=== PATIENT | female | born 1995 | race Hispanic/Latino ===

== ENCOUNTER 2020-03-02 14:17 | Emergency (ER) | payer OTHER, SELFPAY ==
--- OUTSIDE RECORDS SUMMARY | 2020-03-02 14:20 | XMS REPORT | Continuity of Care Document ---
:1995 Author Organization [facility] t Address [address] [place] [address] Care Team Providers Name Role Phone Pcp, Does Not Have A Attending Clinician Wil Real MD Attending Clinician 1, Lab Attending Clinician Unavailable Doctor Unassigned, Name Attending Clinician Unavailable Problems This patient has no known problems. Allergies, Adverse Reactions, Alerts This patient has no known allergies or adverse reactions. Medications This patient has no known medications. Procedures This patient has no known procedures. Encounters Start End Encounter Admission Attending Care Care Encounter Source Date/Time Date/Time Type Type Clinicians Facility Department ID 2019-11-04 2019-11-04 Telephone Pcp, [facility] [id number] 00:00:00 00:00:00 Patient JANITOR AND CLEANER [id number] Does [facility] [id number] Have A MATERNAL [id number] & CHILD [address] [place] [address] 2019-10-29 2019-10-29 Telephone Diane Real AZJONY [id number] 00:00:00 00:00:00 Wil Barron [id number] [place] [id number] Professio [id number] [address] 2019-03-01 2019-03-01 Getter Welder 1, Adc Lab [facility] [id number] 12:36:07 12:51:07 Visit Beatrice [id number] [place] [id number] [place] [id number] 2019-03-01 2019-03-01 Orders Doctor MICHAEL [id number] 00:00:00 00:00:00 Only Unassigned, MONICA [id number] [place] [facility] [id number] 2019-02-20 2019-02-20 Routine Diane Real [facility] [id number] 14:49:44 15:52:21 Cam Beatrice [id number] Visit [place] [id number] [facility] [phone] formerly [facility] [address] [facility] Results This patient has no known results.
[2020-03-02 16:19] LABS: Absolute Lymphocytes (CBC) 1.3 K/uL (0.7-4.9); Basophils % 0.5 % (0-1.3); Hematocrit 33.6 % (36.0-45.0); Lymphocytes % 16.1 % (15.3-44.8); MPV 7.9 fL (7.6-11.3); RBC Red Blood Cell Count 4.63 M/uL (3.86-4.86)
[2020-03-02 16:34] LABS: Urine Bacteria 20-50 /HPF (<20); Urine Culture Reflex Order REFLEXED; Urine RBC <5 /HPF (NONE SEEN)
[2020-03-02 16:48] LABS: Urine Blood NEGATIVE (NEG); Urine Glucose NEGATIVE (NEG); Urine Protein NEGATIVE (NEG)
[2020-03-02 16:56] LABS: BUN Blood Urea Nitrogen 8 mg/dL (7-18); Bicarbonate 26 mmol/L (21-32); Glucose Level 102 mg/dL (74-106); HCG, Quantitative 3931 mIU/mL (1-3); Potassium 3.7 mmol/L (3.5-5.1); Sodium Level 138 mmol/L (136-145)
--- NOTE | 2020-03-02 17:42 | RAD REPORT ---
EXAM DESCRIPTION: US - 1St Trimest Single 1St Fetus - 03/02/2020 5:26 pm CLINICAL HISTORY: with pelvic pain COMPARISON: None. FINDINGS: The uterus measures 10 x 5 x 6 centimeters. A sac is present within the endometrium measu ring 6 millimeters. A yolk sac is not seen. A pole is not demonstrated Ovaries are normal in size and echotexture.. An adnexal mass is not noted. No significant free fluid IMPRESSION: 6 millimeter sac within the endometrium may represent a normal early IUP. Estimated gest ational age would be 5 weeks 2 days SID 10/31/2020. Incomplete and a pseudo gestational sac associated with an ectopic can have a similar appearance. . .This all should be correlated clinically and with serial beta HCG levels. Followup endovaginal sonog nimesh in 1 week recommended
--- NOTE | 2020-03-02 17:54 | ER ---
Nurse's Notes [facility] Name: Radha Diaz Age: 24 yrs Sex: Female : 1995 Arrival Date: 03/02/2020 Time: 14:21 Bed 5 Private MD: Diagnosis: Urinary tract infection, site not specified Presentation: 03/02 14:42 Chief complaint: Patient states: Lower abdominal pain since yesterday. slight nausea. ll1 No fever or dysuria. Texting on cell phone throughout entire triage. Coronavirus screen: Client denies travel out of the [place] in the last 14 days. At this time, the client does not indicate any symptoms associated with coronavirus-19. Ebola Screen: Patient denies travel to an Ebola-affected area in the 21 days before illness onset. Initial Sepsis Screen: Does the patient meet any 2 criteria? HR > 90 bpm. Onset of symptoms was March 01, 2020. 14:42 Method Of Arrival: Ambulatory ll1 14:42 Acuity: CHUCKIE 3 ll1 15:45 Initial Sepsis Screen: Does the patient have a suspected source of infection? No. em Patient's initial sepsis screen is negative. Risk Assessment: Do you want to hurt yourself or someone else? Patient reports no desire to harm self or others. Historical: - Allergies: 14:44 No Known Allergies; ll1 - PMHx: 14:44 None; ll1 - PSHx: 14:44 None; ll1 - Immunization history:: Flu vaccine is up to date. - Social history:: Smoking status: Patient denies any tobacco usage or history of. Patient/guardian denies using alcohol, street drugs. Screenin:48 Abuse screen: Denies threats or abuse. Nutritional screening: No deficits noted. em Tuberculosis screening: No symptoms or risk factors identified. Fall Risk None identified. Assessment: 15:45 General: Appears in no apparent distress. comfortable, Denies fever. Pain: Complains of em pain in suprapubic area Pain currently is 6 out of 10 on a pain scale. Neuro: Level of Consciousness is awake, alert, obeys commands, Oriented to person, place, time, situation, Appropriate for age. Cardiovascular: Capillary refill < 3 seconds Patient's skin is warm and dry. Respiratory: Airway is patent Respiratory effort is even, unlabored, Respiratory pattern is regular, symmetrical. GI: Abdomen is flat, Bowel sounds present X 4 quads. Abd is soft and non tender X 4 quads. Patient currently denies nausea, vomiting. Derm: Skin is intact, is healthy with good turgor, Skin is pink, warm \T\ dry. Musculoskeletal: Capillary refill < 3 seconds, Range of motion: intact in all extremities. 17:58 Reassessment: Patient appears in no apparent distress at this time. Patient and/or em family updated on plan of care and expected duration. Pain level reassessed. Patient is alert, oriented x 3, equal unlabored respirations, skin warm/dry/pink. Vital Signs: 14:42 BP 121 / 78; Pulse 106; Resp 17; Temp 99.3; Pulse Ox 100% ; Pain 6/10; ll1 17:58 BP 128 / 67; Pulse 88; Resp 18; Pulse Ox 99% on R/A; em ED Course: 14:21 Patient arrived in ED. ds1 14:44 Triage completed. ll1 14:45 Arm band placed on. ll1 15:23 Tate Moise PA is PHCP. [facility] 15:23 Anselmo Cantu MD is Attending Physician. [facility] 15:26 Spencer Cat, MIKAELA is Primary Nurse. em 15:48 Patient has correct armband on for positive identification. Fall risk band placed. em Placed in gown. Pulse ox on. NIBP on. 15:48 Urine collected: clean catch specimen, cloudy. em 16:06 Initial lab(s) drawn, by me, sent to lab. Inserted saline lock: 20 gauge in right ph antecubital area, using aseptic technique. Blood collected. 17:26 1st Trimest Single 1st Fetus In Process Unspecified. EDMS 17:59 No provider procedures requiring assistance completed. IV discontinued, intact, em bleeding controlled, No redness/swelling at site. Pressure dressing applied. Administered Medications: No medications were administered Outcome: 17:54 Discharge ordered by . [facility] 18:06 Discharged to home ambulatory. em 18:06 Condition: stable 18:06 Discharge instructions given to patient, Instructed on discharge instructions, follow up and referral plans. medication usage, Demonstrated understanding of instructions, follow-up care, medications, Prescriptions given X 1. 18:12 Patient left the ED. em Signatures: Dispatcher [employer] EDMS Tate Moise PA PA jmm Munoz, Edgar, RN RN Jackelyn Adams ds1 Sammi Jewell RN RN Campos Reich RN RN ll1 Corrections: (The following items were deleted from the chart) 14:45 14:42 Chief complaint: Patient states: Lower abdominal pain since yesterday. slight ll1 nausea. No fever or dysuria. ll1 14:45 14:44 Arm band placed on Patient placed in an exam room, on a stretcher, ll1 ll1
--- NOTE | 2020-03-02 17:54 | EDPHYS ---
Physician Documentation [facility] Name: Radha Diaz Age: 24 yrs Sex: Female : 1995 Arrival Date: 03/02/2020 Time: 14:21 Bed 5 Private MD: ED Physician Anselmo Cantu HPI: 03/02 15:27 This 24 yrs old Female presents to ER via Ambulatory with complaints of jmm Abdominal Pain. 15:27 The patient presents with abdominal pain. Onset: The symptoms/episode began/occurred 1 jmm day(s) ago. The symptoms radiate to Associated signs and symptoms: Pertinent negatives: fever, vomiting. Modifying factors: The symptoms are alleviated by nothing, the symptoms are aggravated by pressure. This is a 24 year old female with no chronic medical conditions that presents to the ED with complaints of pelvic pain beginning approx 1 day ago. Denies fever, vomiting, diarrhea. Patient radiates to the back. Patient denies vaginal bleeding, abnormal discharge. . Historical: - Allergies: 14:44 No Known Allergies; ll1 - PMHx: 14:44 None; ll1 - PSHx: 14:44 None; ll1 - Immunization history:: Flu vaccine is up to date. - Social history:: Smoking status: Patient denies any tobacco usage or history of. Patient/guardian denies using alcohol, street drugs. ROS: 15:27 Constitutional: Negative for fever, chills, and weight loss, Respiratory: Negative for jmm shortness of breath, cough, wheezing, and pleuritic chest pain. 15:27 Abdomen/GI: Positive for nausea. 15:27 Back: Positive for radiated pain. 15:27 : Positive for pelvic pain. 15:27 All other systems are negative. Exam: 15:27 Constitutional: This is a well developed, well nourished patient who is awake, alert, jmm and in no acute distress. Head/Face: atraumatic. Eyes: EOMI, no conjunctival erythema appreciated ENT: Moist Mucus Membranes Neck: Trachea midline, Supple Chest/axilla: Normal chest wall appearance and motion. Cardiovascular: Regular rate and rhythm. No edema appreciated Respiratory: Normal respirations, no respiratory distress appreciated Abdomen/GI: Non distended, soft Back: Normal ROM Skin: General appearance color normal MS/ Extremity: Moves all extremities, no obvious deformities appreciated, no edema noted to the lower extremities Neuro: Awake and alert, normal gait Psych: Behavior is normal, Mood is normal, Patient is cooperative and pleasant 15:34 Abdomen/GI: Inspection: abdomen appears normal, Bowel sounds: normal, Palpation: soft, [facility] mild abdominal tenderness, in the suprapubic area. Vital Signs: 14:42 BP 121 / 78; Pulse 106; Resp 17; Temp 99.3; Pulse Ox 100% ; Pain 6/10; ll1 17:58 BP 128 / 67; Pulse 88; Resp 18; Pulse Ox 99% on R/A; em MDM: 15:25 Patient medically screened. [facility] 17:52 Data reviewed: vital signs, nurses notes. Counseling: I had a detailed discussion with ritu the patient and/or guardian regarding: the historical points, exam findings, and any diagnostic results supporting the discharge/admit diagnosis, lab results, radiology results, the need for outpatient follow up, to return to the emergency department if symptoms worsen or persist or if there are any questions or concerns that arise at home. ED course: No mcburney pt tenderness. Pain appears all pelvic. Patient is advised to follow up with [facility] for further evaluation. patient is otherwise given strict return precautions. Patient understood and agrees with the plan of care. . 03/02 15:47 Order name: Urine Microscopic Only; Complete Time: 17:17 em 03/02 15:48 Order name: Urine Dipstick--Ancillary (enter results); Complete Time: 17:17 03/02 15:48 Order name: Urine --Ancillary (enter results); Complete Time: 17:17 03/02 15:50 Order name: Quantitative Hcg; Complete Time: 17:17 [facility] 03/02 15:50 Order name: Abo/rh Typing; Complete Time: 17:17 [facility] 03/02 15:50 Order name: Basic Metabolic Panel; Complete Time: 17:17 [facility] 03/02 15:26 Order name: Urine Dipstick-Ancillary (obtain specimen); Complete Time: 15:47 [facility] 03/02 15:26 Order name: Urine Test (obtain specimen); Complete Time: 15:47 [facility] 03/02 15:50 Order name: CBC with Diff; Complete Time: 17:17 [facility] 03/02 15:50 Order name: IV Saline Lock; Complete Time: 16:47 [facility] 03/02 15:50 Order name: Labs collected and sent; Complete Time: 16:47 [facility] 03/02 15:50 Order name: NPO; Complete Time: 16:47 [facility] 03/02 16:19 Order name: 1st Trimest Single 1st Fetus; Complete Time: 17:48 [facility] 03/02 16:35 Order name: Urine Culture EDUT Administered Medications: No medications were administered Disposition: 03/02/20 17:54 Discharged to Home. Impression: Urinary tract infection, site not specified. - Condition is Stable. - Discharge Instructions: and Urinary Tract Infection. - Prescriptions for Cephalexin 500 mg Oral Capsule - take 1 capsule by ORAL route every 12 hours for 10 days; 20 capsule. - Medication Reconciliation Form, Thank You Letter, Antibiotic Education, Prescription Opioid Use form. - Follow up: Private Physician; When: 2 - 3 days; Reason: Recheck today's complaints, Continuance of care, Re-evaluation by your physician. Addendum: 03/03/2020 19:50 Co-signature as Attending Physician, Anselmo Cantu MD I agree with the assessment and k dr plan of care. Signatures: Dispatcher [employer] EDUT Anselmo Cantu MD MD [facility] Tate Moise PA PA [facility] Spencer Cat, RN RN em Campos Paul RN RN ll1 Corrections: (The following items were deleted from the chart) 03/02 18:12 17:54 03/02/2020 17:54 Discharged to Home. Impression: Urinary tract infection, site em not specified. Condition is Stable. Forms are Medication Reconciliation Form, Thank You Letter, Antibiotic Education, Prescription Opioid Use. Follow up: Private Physician; When: 2 - 3 days; Reason: Recheck today's complaints, Continuance of care, Re-evaluation by your physician. [facility]
== END 2020-03-02 18:12 | disposition home or self-care (01) ==
LOC: ER 14:17
DX: N39.0 Urinary tract infection, site not specified (principal)
CPT/HCPCS: 36415; 76801; 80048; 81003; 81015; 81025; 84702; 85025; 86900; 86901; 87086; 87088; 99284

== ENCOUNTER 2021-11-02 14:28 | Emergency (ER) | payer OTHER ==
--- OUTSIDE RECORDS SUMMARY | 2021-11-02 14:32 | XMS REPORT | Continuity of Care Document ---
:1995 Author Organization [facility] t Address [address] [place] [address] Care Team Providers Name Role Phone ANENE Primary Care Physician Unavailable Richie DAHL Attending Clinician Unavailable LAVONNE Attending Clinician Unavailable LAVONNE Attending Clinician Unavailable Ricardo AGACNEugenie Attending Clinician RICARDO Attending Clinician Unavailable Richie Dahl MD Attending Clinician Sejal PAYNE Attending Clinician Pcp, Does Not Have A Attending Clinician Wil Real MD Attending Clinician 1, Lab Attending Clinician Unavailable Doctor Unassigned, Name Attending Clinician Unavailable Richie DAHL Admitting Clinician Unavailable Payers Payer Name Policy Type Policy Number Effective Date Expiration Date [facility] [id number] 2020 CHOICE MEDICAID 00:00:00 Problems Condition Condition Condition Status Onset Resolution Last Treating Co mments Source Name Details Category Date Date Treatment Clinician Date Excess Excess Disease Active Overview: Univer s skin of skin of 3-25 Formattin ity o f abdomen abdomen 00:00: g of this 00 note Medical might be Branch different from the original. Added automatic ally from request for surgery [id number] Encounter Encounter Disease Active Uni vers for for 4-19 ity of elective elective 00:00: [place] induction induction 00 Medi alejandro of labor of labor Branch Pelvic Pelvic Disease Active 2021-0 Univers pain pain 2-22 [place] of affecting [place] in third in third Branch trimester, trimester, antepartum antepartum Red blood Red blood Disease Active 2019-07 Uni vers cell cell 0-08 ity of antibody antibody 00:00: [place] positive positive 00 Medica l Branch GBS (group GBS (group Disease Active Overview : Univers B B 9-15 Formattin ity of streptococ streptococ 00:00: g of this [place] cus) UTI cus) UTI 00 note Medica l complicati complicati might be Branch ng ng different from the original. Pending GAURANG Over Over Disease Active Univers weight weight 9-11 ity of 00:00: [place] 00 Medical Branch Vaginal Vaginal Disease Active Univers yeast yeast 9-11 ity of infection infection 00:00: [place] [facility] Short Short Disease Active Univers interval interval 9-11 ity of between between 00:00: [place] pregnancie pregnancie 00 Me dical s s Branch affecting affecting , , antepartum antepartum [place] Disease Active Univers multiparit multiparit 9-11 it y of y, y, 00:00: [place] antepartum antepartum 00 Me dical Branch History of History of Disease Active 2018-07 Overview : Univers 2-06 Formattin ity o f delivery delivery 00:00: g of this Rohit as 00 note Medical might be Branch different from the original. 34,6 see chart review 2019 baby Disease Active Univers (spontaneo (spontaneo 9-21 it y of [place] vaginal [place] vaginal [place] delivery[place] 00 [facility] Branch Anemia of Anemia of Disease Active Uni vers mother in mother in 6-28 ity of , , [place] antepartum antepartum 00 Me dical Branch History of History of Disease Active U nivers miscarriag miscarriag 6-13 it y of e, e, 00:00: [place] currently currently 00 [facility] Branch Supervisio Supervisio Disease Active U nivers n of high n of high 6-13 ity of risk risk 00:00: [place] , , 00 Me dical antepartum antepartum Br anch Allergies, Adverse Reactions, Alerts Allergy Allergy Status Severity Reaction(s) Onset Inactive Treating Comm ents Source Name Type Date Date Clinician NO KNOWN Drug Active Univers ALLERGIE Class ity of S [facility] Social History Social Habit Start Date Stop Date Quantity Comments Source Exposure to 2021-09-05 2021-10-05 Yes [facility] SARS-CoV-2 (event) 00:00:00 15:45:00 Medica l Branch Alcohol intake 2021-10-01 2021-10-01 0 /d [facility] 00:00:00 00:00:00 Medical Branch Tobacco use and 2015-12-21 2015-12-21 Never used [facility] exposure 00:00:00 00:00:00 Medical Branch Sex [birth year] At [birth year] [facility] 00:00:00 00:00:00 Medical Branch Smoking Status Start Date Stop Date Source Never smoker [facility] Medications Ordered Filled Start Stop Current Ordering Indication Dosage Frequency Signature Comments Components Source Medication Medication Date Date Medication? Clinician (SIG) Name Name nystatin 2020-07 Yes [id number] Apply to Univers 100,000 2-07 area(s) 3 ity of unit/gram 00:00: (three) [place] powder 00 times Medical daily. Branch nystatin 2020-07 Yes [id number] Apply to Univers 100,000 2-07 area(s) 3 ity of unit/gram 00:00: (three) [place] powder 00 times Medical daily. Branch nystatin 2020-07 Yes [id number] Apply to Univers 100,000 2-07 area(s) 3 ity of unit/gram 00:00: (three) [place] powder 00 times Medical daily. Branch nystatin 2020-07 Yes [id number] Apply to Univers 100,000 2-07 area(s) 3 ity of unit/gram 00:00: (three) [place] powder 00 times Medical daily. Branch nystatin 2020-07 Yes [id number] Apply to Univers 100,000 2-07 area(s) 3 ity of unit/gram 00:00: (three) [place] powder 00 times Medical daily. Branch nystatin 2020-07 Yes [id number] Apply to Univers 100,000 2-07 area(s) 3 ity of unit/gram 00:00: (three) [place] powder 00 times Medical daily. Branch nystatin 2020-1 Yes [id number] Apply to Univers 100,000 2-07 area(s) 3 ity of unit/gram 00:00: (three) [place] powder 00 times Medical daily. Branch terbinafine 2020-0 Yes [id number] Apply to Univers HCL 1 % 9-28 area(s) 2 ity of cream 00:00: (two) [place] 00 times Medical daily. Branch terbinafine 2020-0 Yes [id number] Apply to Univers HCL 1 % 9-28 area(s) 2 ity of cream 00:00: (two) [place] 00 times Medical daily. Branch terbinafine 2020-0 Yes [id number] Apply to Univers HCL 1 % 9-28 area(s) 2 ity of cream 00:00: (two) [place] 00 times Medical daily. Branch terbinafine 2020-0 Yes [id number] Apply to Univers HCL 1 % 9-28 area(s) 2 ity of cream 00:00: (two) [place] 00 times Medical daily. Branch terbinafine 2020-0 Yes [id number] Apply to Univers HCL 1 % 9-28 area(s) 2 ity of cream 00:00: (two) [place] 00 times Medical daily. Branch terbinafine 2020-0 Yes [id number] Apply to Univers HCL 1 % 9-28 area(s) 2 ity of cream 00:00: (two) [place] 00 times Medical daily. Branch terbinafine 2020-0 Yes [id number] Apply to Univers HCL 1 % 9-28 area(s) 2 ity of cream 00:00: (two) [place] 00 times Medical daily. Branch ibuprofen 2020-0 Yes [id number] 600mg Take 1 Univers 600 mg 4-20 tablet by ity of tablet 00:00: mouth [place] 00 every 6 Medical (six) Branch hours as needed (Pain). Take with food or milk. ibuprofen 1-0 Yes [id number] 600mg Take 1 Univers 600 mg 4-20 tablet by ity of tablet 00:00: mouth [place] 00 every 6 Medical (six) Branch hours as needed (Pain). Take with food or milk. ibuprofen 1-0 Yes [id number] 600mg Take 1 Univers 600 mg 4-20 tablet by ity of tablet 00:00: mouth [place] 00 every 6 Medical (six) Branch hours as needed (Pain). Take with food or milk. ibuprofen 0 Yes [id number] 600mg Take 1 Univers 600 mg 4-20 tablet by ity of tablet 00:00: mouth [place] 00 every 6 Medical (six) Branch hours as needed (Pain). Take with food or milk. ibuprofen 0 Yes [id number] 600mg Take 1 Univers 600 mg 4-20 tablet by ity of tablet 00:00: mouth [place] 00 every 6 Medical (six) Branch hours as needed (Pain). Take with food or milk. ibuprofen 0 Yes [id number] 600mg Take 1 Univers 600 mg 4-20 tablet by ity of tablet 00:00: mouth [place] 00 every 6 Medical (six) Branch hours as needed (Pain). Take with food or milk. ibuprofen 0 Yes [id number] 600mg Take 1 Univers 600 mg 4-20 tablet by ity of tablet 00:00: mouth [place] 00 every 6 Medical (six) Branch hours as needed (Pain). Take with food or milk. ferrous Yes [id number] 325mg Take 1 Un quynh sulfate 3-02 tablet by ity of (IRON, 00:00: mouth 3 [place] FERROUS 00 (three) Medical SULFATE,) times Branch 325 mg (65 daily with mg iron) meals. tablet ferrous Yes [id number] 325mg Take 1 Un quynh sulfate 3-02 tablet by ity of (IRON, 00:00: mouth 3 [place] FERROUS 00 (three) Medical SULFATE,) times Branch 325 mg (65 daily with mg iron) meals. tablet ferrous Yes [id number] 325mg Take 1 Un quynh sulfate 3-02 tablet by ity of (IRON, 00:00: mouth 3 [place] FERROUS 00 (three) Medical SULFATE,) times Branch 325 mg (65 daily with mg iron) meals. tablet ferrous 0 Yes [id number] 325mg Take 1 Un quynh sulfate 3-02 tablet by ity of (IRON, 00:00: mouth 3 [place] FERROUS 00 (three) Medical SULFATE,) times Branch 325 mg (65 daily with mg iron) meals. tablet ferrous Yes [id number] 325mg Take 1 Un quynh sulfate 3-02 tablet by ity of (IRON, 00:00: mouth 3 [place] FERROUS 00 (three) Medical SULFATE,) times Branch 325 mg (65 daily with mg iron) meals. tablet ferrous Yes [id number] 325mg Take 1 Un quynh sulfate 3-02 tablet by ity of (IRON, 00:00: mouth 3 [place] FERROUS 00 (three) Medical SULFATE,) times Branch 325 mg (65 daily with mg iron) meals. tablet ferrous Yes [id number] 325mg Take 1 Un quynh sulfate 3-02 tablet by ity of (IRON, 00:00: mouth 3 [place] FERROUS 00 (three) Medical SULFATE,) times Branch 325 mg (65 daily with mg iron) meals. tablet ascorbic 2019-07 Yes [id number] 500mg Take 1 U nivers acid, 0-08 tablet by ity of vitamin C, 00:00: mouth [place] 500 mg 00 daily. Medical tablet Branch docusate 2019-07 Yes [id number] 100mg Take 1 U nivers (COLACE) 0-08 capsule by ity o f 100 mg 00:00: mouth once [place] capsule 00 daily as Medical needed for Branch Constipati on for up to 30 doses. ascorbic 2019-07 Yes [id number] 500mg Take 1 U nivers acid, 0-08 tablet by ity of vitamin C, 00:00: mouth [place] 500 mg 00 daily. Medical tablet Branch docusate 2019-07 Yes [id number] 100mg Take 1 U nivers (COLACE) 0-08 capsule by ity o f 100 mg 00:00: mouth once [place] capsule 00 daily as Medical needed for Branch Constipati on for up to 30 doses. ascorbic 2019-07 Yes [id number] 500mg Take 1 U nivers acid, 0-08 tablet by ity of vitamin C, 00:00: mouth [place] 500 mg 00 daily. Medical tablet Branch docusate 2019-07 Yes [id number] 100mg Take 1 U nivers (COLACE) 0-08 capsule by ity o f 100 mg 00:00: mouth once [place] capsule 00 daily as Medical needed for Branch Constipati on for up to 30 doses. ascorbic 2019-07 Yes [id number] 500mg Take 1 U nivers acid, 0-08 tablet by ity of vitamin C, 00:00: mouth [place] 500 mg 00 daily. Medical tablet Branch docusate 2019-07 Yes [id number] 100mg Take 1 U nivers (COLACE) 0-08 capsule by ity o f 100 mg 00:00: mouth once [place] capsule 00 daily as Medical needed for Branch Constipati on for up to 30 doses. ascorbic 2019-07 Yes [id number] 500mg Take 1 U nivers acid, 0-08 tablet by ity of vitamin C, 00:00: mouth [place] 500 mg 00 daily. Medical tablet Branch docusate 2019-07 Yes [id number] 100mg Take 1 U nivers (COLACE) 0-08 capsule by ity o f 100 mg 00:00: mouth once [place] capsule 00 daily as Medical needed for Branch Constipati on for up to 30 doses. ascorbic 2019-07 Yes [id number] 500mg Take 1 U nivers acid, 0-08 tablet by ity of vitamin C, 00:00: mouth [place] 500 mg 00 daily. Medical tablet Branch docusate 2019-07 Yes [id number] 100mg Take 1 U nivers (COLACE) 0-08 capsule by ity o f 100 mg 00:00: mouth once [place] capsule 00 daily as Medical needed for Branch Constipati on for up to 30 doses. ascorbic 2019-07 Yes [id number] 500mg Take 1 U nivers acid, 0-08 tablet by ity of vitamin C, 00:00: mouth [place] 500 mg 00 daily. Medical tablet Branch docusate 2019-07 Yes [id number] 100mg Take 1 U nivers (COLACE) 0-08 capsule by ity o f 100 mg 00:00: mouth once [place] capsule 00 daily as Medical needed for Branch Constipati on for up to 30 doses. Yes [id number] 1{tbl} Take 1 U nivers multivitami 9-11 tablet by ity of n ( 00:00: mouth [place] VITAMIN) 00 daily. Medical tablet Branch Yes [id number] 1{tbl} Take 1 U nivers multivitami 9-11 tablet by ity of n ( 00:00: mouth [place] VITAMIN) 00 daily. Medical tablet Branch Yes [id number] 1{tbl} Take 1 U nivers multivitami 9-11 tablet by ity of n ( 00:00: mouth [place] VITAMIN) 00 daily. Medical tablet Branch Yes [id number] 1{tbl} Take 1 U nivers multivitami 9-11 tablet by ity of n ( 00:00: mouth [place] VITAMIN) 00 daily. Medical tablet Branch 0 Yes [id number] 1{tbl} Take 1 U nivers multivitami 9-11 tablet by ity of n ( 00:00: mouth [place] VITAMIN) 00 daily. Medical tablet Branch 2020-0 Yes [id number] 1{tbl} Take 1 U nivers multivitami 9-11 tablet by ity of n ( 00:00: mouth [place] VITAMIN) 00 daily. Medical tablet Branch 2020-0 Yes [id number] 1{tbl} Take 1 U nivers multivitami 9-11 tablet by ity of n ( 00:00: mouth [place] VITAMIN) 00 daily. Medical tablet Branch Immunizations Ordered Filled Immunization Date Status Comments [facility] e Immunization Name Name TDAP 2020-08-06 Completed University of 00:00:00 [facility] TDAP 2020-08-06 Completed University of 00:00:00 [facility] TDAP 2020-08-06 Completed University of 00:00:00 [facility] TDAP 2020-08-06 Completed University of 00:00:00 [facility] TDAP 2020-08-06 Completed University of 00:00:00 [facility] TDAP 2020-08-06 Completed University of 00:00:00 [facility] TDAP 2020-08-06 Completed University of 00:00:00 [facility] Influenza Virus 2020-06-11 Completed Universit y of Vaccine Quad .5 mL 00:00:00 [facility] 6+ MO Branch Influenza Virus 2020-06-11 Completed Universit y of Vaccine Quad .5 mL 00:00:00 [facility] 6+ MO Branch Influenza Virus 2020-06-11 Completed Universit y of Vaccine Quad .5 mL 00:00:00 [place] [facility] 6+ MO Branch Influenza Virus 2020-06-11 Completed Universit y of Vaccine Quad .5 mL 00:00:00 [place] [facility] IM 6+ MO Branch Influenza Virus 2020-06-11 Completed Universit y of Vaccine Quad .5 mL 00:00:00 [place] [facility] IM 6+ MO Branch Influenza Virus 2020-06-11 Completed Universit y of Vaccine Quad .5 mL 00:00:00 [facility] 6+ MO Branch Influenza Virus 2020-06-11 Completed Universit y of Vaccine Quad .5 mL 00:00:00 [facility] 6+ MO Branch Varicella 2019-06-16 Completed University of (varivax)(chicken 00:00:00 [place] M edical pox) Branch Varicella 2019-06-16 Completed University of (varivax)(chicken 00:00:00 [place] M edical pox) Branch Varicella 2019-06-16 Completed University of (varivax)(chicken 00:00:00 [place] M edical pox) Branch Varicella 2019-06-16 Completed University of (varivax)(chicken 00:00:00 [place] M edical pox) Branch Varicella 2019-06-16 Completed University of (varivax)(chicken 00:00:00 [place] M edical pox) Branch Varicella 2019-06-16 Completed University of (varivax)(chicken 00:00:00 [place] M edical pox) Branch Varicella 2019-06-16 Completed University of (varivax)(chicken 00:00:00 [place] M edical pox) Branch TDAP (ADACEL) 2019-04-29 Completed University of VACCINE 00:00:00 [facility] Influenza Virus 2019-04-29 Completed Universit y of Vaccine Quad .5 mL 00:00:00 [facility] IM 6+ MO Branch TDAP (ADACEL) 2019-04-29 Completed University of VACCINE 00:00:00 [facility] Influenza Virus 2019-04-29 Completed Universit y of Vaccine Quad .5 mL 00:00:00 [facility] IM 6+ MO Branch TDAP (ADACEL) 2019-04-29 Completed University of VACCINE 00:00:00 [facility] Influenza Virus 2019-04-29 Completed Universit y of Vaccine Quad .5 mL 00:00:00 [facility] IM 6+ MO Branch TDAP (ADACEL) 2019-04-29 Completed University of VACCINE 00:00:00 [facility] Influenza Virus 2019-04-29 Completed Universit y of Vaccine Quad .5 mL 00:00:00 [facility] IM 6+ MO Branch TDAP (ADACEL) 2019-04-29 Completed University of VACCINE 00:00:00 [facility] Influenza Virus 2019-04-29 Completed Universit y of Vaccine Quad .5 mL 00:00:00 [facility] IM 6+ MO Branch TDAP (ADACEL) 2019-04-29 Completed University of VACCINE 00:00:00 [facility] Influenza Virus 2019-04-29 Completed Universit y of Vaccine Quad .5 mL 00:00:00 [facility] IM 6+ MO Branch TDAP (ADACEL) 2019-04-29 Completed University of VACCINE 00:00:00 [facility] Influenza Virus 2019-04-29 Completed Universit y of Vaccine Quad .5 mL 00:00:00 [facility] IM 6+ MO Branch TDAP 2016-01-04 Completed University of 00:00:00 [facility] TDAP 2016-01-04 Completed University of 00:00:00 [facility] TDAP 2016-01-04 Completed University of 00:00:00 [facility] TDAP 2016-01-04 Completed University of 00:00:00 [facility] TDAP 2016-01-04 Completed University of 00:00:00 [facility] Branch TDAP 2016-01-04 Completed University of 00:00:00 [facility] TDAP 2016-01-04 Completed University of 00:00:00 [facility] Vital Signs Vital Name Observation Time Observation Value Comments Source Systolic blood 2021-10-05 20:51:00 119 mm[Hg] Univer sity of pressure [facility] Diastolic blood 2021-10-05 20:51:00 79 mm[Hg] Unive rsity of [facility] Heart rate 2021-10-05 20:51:00 65 /min [facility] Respiratory rate 2021-10-05 20:51:00 16 /min [facility] Body height 2021-10-05 20:51:00 157.5 cm [facility] Body weight 2021-10-05 20:51:00 75.751 kg [facility] BMI 2021-10-05 20:51:00 30.54 kg/m2 [facility] Oxygen saturation in 2021-10-05 20:51:00 97 /min [facility] Arterial blood by [facility] Pulse oximetry Branch Procedures This patient has no known procedures. Encounters Start End Encounter Admission Attending Care Care Encounter Source Date/Time Date/Time Type Type Clinicians Facility Department ID 2021-10-29 Outpatient Shauna DAHL [facility] SPL [id number] Univers 14:45:08 TANIKA asher [facility] 2021-11-16 2021-11-16 Outpatient Shauna DAHL [facility] [id number] Univers 11:00:00 11:00:00 TANIKA [id number] [facility] 2021-11-05 2021-11-05 Outpatient R GOLDENARTURO [facility] B [id number] Univers 09:30:00 09:30:00 ARTURO BANERJEE [id number] ity [facility] 2021-11-05 2021-11-05 Outpatient R CINDYVIVEK ARTURO [facility] B [id number] Univers 09:30:00 09:30:00 ARTURO BANERJEE ity [facility] 2021-10-08 2021-10-08 Telephone Ricardo [facility] [id number] Univers 00:00:00 00:00:00 Kim SPECIALTY [id number] ity of C[place] [id number] [place] [phone] [place] andrew GRIMES [address] [place] [address] 2021-10-07 2021-10-07 [facility] [id number] Univers 16:00:00 16:15:00 ne Visit Kim SPECIALTY [id number] ity of CARE [id number] [place] [phone] [place] ivonneprieto GRIMES [address] [place] [address] 2021-10-07 2021-10-07 Outpatient N RICARDO [facility] [id number] Univers 16:00:00 16:00:00 KIM ity [facility] 2021-10-07 2021-10-07 [facility] [id number] Univers 00:00:00 00:00:00 Kim SPECIALTY [id number] ity of CARE [id number] [place] [phone] [place] ivonneprieto GRIMES [address] [place] [address] 2021-10-06 2021-10-06 Telephone Ry [facility] [id number] Univers 00:00:00 00:00:00 Tanika Quiroz SPECIALTY [id number] ity of CARE [id number] [place] [id number] [place] ivonneprieto GRIMES [address] [place] [address] 2021-10-052021-10-05 Office Sejal Huan [facility] [id number] Univers 15:30:00 15:45:00 Visit HEALTH [id number] it y of CLEAR [id number] Jessica high AGUILA [phone] [address] BUILDING 2021-09-27 2021-09-27 Telephone Ry [facility] [id number] Univers 00:00:00 00:00:00 Tanika Quiroz SPECIALTY [id number] ity of CARE [id number] Jessica high ALBION AT [phone] [place] andrew GRIMES [address] [facility] 2019-11-04 2019-11-04 Telephone Pcp [facility] [id number] 00:00:00 00:00:00 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 Does Not REGIONAL [id number] Have A MATERNAL [phone] & CHILD [address] [place] [address] 2019-10-29 2019-10-29 Telephone Diane Real DEJONY [id number] 00:00:00 00:00:00 Cam Beatrice [id number] [place] [id number] Professio [phone] [address] 2019-03-01 2019-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
[2021-11-02] MEDS ORDERED: ACETAMINOPHEN 500 MG TAB ONE (15:13)
[2021-11-02 15:18] LABS: Absolute Lymphocytes (CBC) 1.4 K/uL (0.7-4.9); Hematocrit 35.6 % (36.0-45.0); MPV 7.4 fL (7.6-11.3); RBC Red Blood Cell Count 4.16 M/uL (3.86-4.86)
[2021-11-02 15:35] LABS: BUN Blood Urea Nitrogen 8 mg/dL (7-18); Bicarbonate 26 mmol/L (21-32); Glucose Level 107 mg/dL (74-106); Potassium 3.9 mmol/L (3.5-5.1); Sodium Level 138 mmol/L (136-145)
[2021-11-02 15:48] LABS: HCG, Quantitative 37548 mIU/mL (1-3)
[2021-11-02 15:52] LABS: Urine Blood 2+ (Negative); Urine Glucose Negative (Negative); Urine Protein Negative (Negative)
[2021-11-02 16:10] LABS: Urine Bacteria >50 /HPF (<20); Urine RBC NONE SEEN /HPF (NONE SEEN)
--- NOTE | 2021-11-02 17:02 | RAD REPORT ---
EXAM DESCRIPTION: US - Transvaginal OB - 11/02/2021 4:22 pm CLINICAL HISTORY: Abd cramping, COMPARISON: Transvaginal OB dated 09/11/2017 FINDINGS: Single IUP identified. heart tones are present. The crown-rump length measures 9 mil limeters which is consistent with 6 weeks 6 day. The yolk sac is identified which is normal. A small subchorionic hemorrhage is identified. This measures less than 25% of the surface area of the gestati onal sac. The right ovary has volume of 16.4 cc. There is likely a corpus luteum. Left ovary has a vo lume of 3 cc. Bilateral ovarian blood flow. No free fluid. IMPRESSION: Single viable IUP with positive heart tones measuring 6 weeks 6 day with SID of . Small subchorionic hemorrhage which is typically of little clinical significance. Bilateral ovarian blood flow.
--- NOTE | 2021-11-02 17:41 | ER ---
Nurse's Notes [facility] Name: Radha Diaz Age: 26 yrs Sex: Female : 1995 Arrival Date: 11/02/2021 Time: 14:30 Bed 13 Private MD: Diagnosis: Threatened Presentation: 11/02 14:40 Chief complaint: Patient states: lower abdominal pain/cramping, spotting X 2-3 days. ld1 Coronavirus screen: At this time, the client does not indicate any symptoms associated with coronavirus-19. Ebola Screen: No symptoms or risks identified at this time. Initial Sepsis Screen: Does the patient meet any 2 criteria? No. Patient's initial sepsis screen is negative. Does the patient have a suspected source of infection? No. Patient's initial sepsis screen is negative. Risk Assessment: Do you want to hurt yourself or someone else? Patient reports no desire to harm self or others. Onset of symptoms was November 02, 2021. 14:40 Method Of Arrival: Ambulatory ld1 14:40 Acuity: CHUCKIE 3 ld1 Triage Assessment: 14:41 General: Appears in no apparent distress. comfortable, Behavior is calm, cooperative, ld1 appropriate for age. Pain: Complains of pain in right lower quadrant and left lower quadrant Pain does not radiate. Pain currently is 5 out of 10 on a pain scale. Quality of pain is described as aching, crampy. EENT: No signs and/or symptoms were reported regarding the EENT system. Cardiovascular: Capillary refill < 3 seconds Patient's skin is warm and dry. Rhythm is sinus rhythm. Respiratory: Airway is patent Respiratory effort is even, unlabored, Respiratory pattern is regular, symmetrical. GI: Abdomen is flat, non-distended. GI: Reports lower abdominal pain. : No signs and/or symptoms were reported regarding the genitourinary system. Reports vaginal bleeding that is brown, light flow, spotty. Derm: No signs and/or symptoms reported regarding the dermatologic system. Musculoskeletal: No signs and/or symptoms reported regarding the musculoskeletal system. 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 - Social history:: Smoking status: Patient denies any tobacco usage or history of. Patient/guardian denies using alcohol. Screenin:59 Abuse screen: Denies threats or abuse. Denies injuries from another. Nutritional jg9 screening: No deficits noted. Tuberculosis screening: No symptoms or risk factors identified. Fall Risk None identified. Assessment: 14:44 Reassessment:. ld1 Vital Signs: 14:40 BP 117 / 68; Pulse 87; Resp 12; Temp 98.3(O); Pulse Ox 99% on R/A; Weight 75.75 kg; ld1 Height 5 ft. 2 in. (157.48 cm); Pain 5/10; 15:00 BP 116 / 66; Pulse 77; Resp 20 S; Pulse Ox 100% on R/A; jg9 14:40 Body Mass Index 30.54 (75.75 kg, 157.48 cm) ld1 ED Course: 14:30 Patient arrived in ED. ds1 14:32 Erlin Pisano PA is PHCP. cp 14:32 Houston Arevalo MD is Attending Physician. cp 14:38 Jaylene Lombardi, MIKAELA is Primary Nurse. jg9 14:41 Triage completed. ld1 14:41 Arm band placed on right wrist. ld1 15:13 Patient has correct armband on for positive identification. Bed in low position. Call jg9 light in reach. Side rails up X 1. 15:13 Inserted saline lock: 20 gauge in right antecubital area, using aseptic technique. jg9 Blood collected. 16:06 US Transvaginal Ob In Process Unspecified. EDMS 18:00 No provider procedures requiring assistance completed. jg9 18:00 IV discontinued. jg9 Administered Medications: 15:13 Drug: Tylenol 1000 mg Route: PO; jg9 15:47 Follow up: Response: Pain is decreased jg9 Point of Care Testing: Urine : 15:56 hCG Reading: Positive; Control Reading: Positive; jg9 15:56 Exp: 04/08/2023; Lot #: [id number]; jg9 Outcome: 17:41 Discharge ordered by . karson 18:00 Discharged to home ambulatory. jg9 18:00 Condition: stable 18:00 Discharge instructions given to patient, Instructed on discharge instructions, follow up and referral plans. Demonstrated understanding of instructions, follow-up care, medications, Prescriptions given X 2. 18:00 Patient left the ED. jg9 Signatures: Dispatcher [employer] EDTN Jackelyn Enrique ds1 Erlin Pisano PA PA cp Dibbern, Lauren, RN RN ld1 Jaylene Lombardi RN RN jg9
--- NOTE | 2021-11-02 17:41 | EDPHYS ---
Physician Documentation [facility] Name: Radha Diaz Age: 26 yrs Sex: Female : 1995 Arrival Date: 11/02/2021 Time: 14:30 Bed 13 Private MD: ED Physician Houston Arevalo HPI: 11/02 14:59 This 26 yrs old Female presents to ER via Ambulatory with complaints of cp Vaginal Bleeding, Abdominal Pain. 14:59 The patient presents with vaginal bleeding that is light, with no clots. Onset: The cp symptoms/episode began/occurred 2 day(s) ago. 15:00 Associated signs and symptoms: Pertinent positives: cramping, Pertinent cp negatives: constipation, diarrhea, fever, vomiting. 15:00 Severity of symptoms: in the emergency department the symptoms are unchanged, despite cp home interventions. The patient's method of control includes nothing. 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 - Social history:: Smoking status: Patient denies any tobacco usage or history of. Patient/guardian denies using alcohol. ROS: 15:05 Constitutional: Negative for body aches, chills, fever, poor PO intake. cp 15:05 Eyes: Negative for injury, pain, redness, and discharge. cp 15:05 ENT: Negative for drainage from ear(s), ear pain, sore throat, difficulty swallowing, difficulty handling secretions. 15:05 Cardiovascular: Negative for chest pain, edema, palpitations. 15:05 Respiratory: Negative for cough, shortness of breath, wheezing. 15:05 Abdomen/GI: Positive for abdominal cramps, Negative for vomiting, diarrhea, constipation, black/tarry stool, rectal bleeding. 15:05 Back: Negative for pain at rest, pain with movement. 15:05 Neuro: Negative for altered mental status, dizziness, headache, weakness. 15:05 All other systems are negative. Exam: 15:10 Constitutional: The patient appears in no acute distress, alert, awake, cp non-diaphoretic, non-toxic, well developed, well nourished. 15:10 Head/Face: Normocephalic, atraumatic. cp 15:10 Eyes: Periorbital structures: appear normal, Conjunctiva: normal, no exudate, no injection, Sclera: no appreciated abnormality, Lids and lashes: appear normal, bilaterally. 15:10 ENT: External ear(s): are unremarkable, Nose: is normal, Mouth: Lips: moist, Oral mucosa: moist, Posterior pharynx: Airway: no evidence of obstruction, patent. 15:10 Neck: ROM/movement: is normal, is supple, without pain, no range of motions limitations. 15:10 Chest/axilla: Inspection: normal. 15:10 Cardiovascular: Rate: normal, Rhythm: regular. 15:10 Respiratory: the patient does not display signs of respiratory distress, Respirations: normal, no use of accessory muscles, no retractions, labored breathing, is not present, Breath sounds: are clear throughout, no decreased breath sounds, no stridor, no wheezing. 15:10 Abdomen/GI: Inspection: abdomen appears normal, Bowel sounds: active, all quadrants, Palpation: soft, in all quadrants, mild abdominal tenderness, in the right lower quadrant and left lower quadrant, rebound tenderness, is not appreciated, voluntary guarding, is not appreciated, involuntary guarding, is not appreciated. 15:10 Back: CVA tenderness, is absent. 15:10 Neuro: Orientation: to person, place \T\ time. Mentation: is normal. Vital Signs: 14:40 BP 117 / 68; Pulse 87; Resp 12; Temp 98.3(O); Pulse Ox 99% on R/A; Weight 75.75 kg; ld1 Height 5 ft. 2 in. (157.48 cm); Pain 5/10; 15:00 BP 116 / 66; Pulse 77; Resp 20 S; Pulse Ox 100% on R/A; jg9 14:40 Body Mass Index 30.54 (75.75 kg, 157.48 cm) ld1 MDM: 14:48 Patient medically screened. cp 15:00 Differential diagnosis: ectopic , menorrhea, molar preganancy, ovarian cyst, cp urinary tract infection, vaginosis. 17:40 Data reviewed: vital signs, nurses notes, lab test result(s), radiologic studies, cp ultrasound. 17:40 Counseling: I had a detailed discussion with the patient and/or guardian regarding: the cp historical points, exam findings, and any diagnostic results supporting the discharge/admit diagnosis, lab results, radiology results, the need for outpatient follow up, an OB/Gyne specialist, to return to the emergency department if symptoms worsen or persist or if there are any questions or concerns that arise at home. 11/02 14:57 Order name: Abo/rh Typing; Complete Time: 17:33 11/02 17:33 Interpretation: Reviewed. 11/02 14:57 Order name: Basic Metabolic Panel; Complete Time: 15:53 11/02 15:53 Interpretation: Normal except: CL 110; GLUC 107. 11/02 14:57 Order name: CBC with Diff; Complete Time: 15:53 11/02 15:53 Interpretation: Normal except: HGB 11.8; HCT 35.6; MCV 85.6; MCH 28.4; MPV 7.4. 11/02 14:57 Order name: Quantitative Hcg; Complete Time: 15:53 11/02 15:54 Interpretation: HCGQ 16494; Reviewed. 11/02 15:52 Order name: Urine Dipstick-Ancillary; Complete Time: 15:53 EDMS 11/02 15:55 Interpretation: Normal except: UBLD 2+; UESTR 2+. 11/02 15:53 Order name: Urine Microscopic Only; Complete Time: 16:54 11/02 16:54 Interpretation: Normal except: UWBC 5-10; UBACT >50. 11/02 14:57 Order name: IV Saline Lock; Complete Time: 15:13 11/02 14:57 Order name: Labs collected and sent; Complete Time: 15:13 11/02 14:57 Order name: Urine Dipstick-Ancillary (obtain specimen); Complete Time: 15:56 11/02 14:57 Order name: US Transvaginal Ob; Complete Time: 17:08 11/02 17:08 Interpretation: Report reviewed. 11/02 15:53 Order name: Urine --Ancillary (enter results); Complete Time: 16:54 bd 11/02 16:13 Order name: Urine Culture [facility] 11/02 14:57 Order name: Urine Test (obtain specimen); Complete Time: 15:56 cp Administered Medications: 15:13 Drug: Tylenol 1000 mg Route: PO; jg9 15:47 Follow up: Response: Pain is decreased jg9 Point of Care Testing: Urine : 15:56 hCG Reading: Positive; Control Reading: Positive; jg9 15:56 Exp: 04/08/2023; Lot #: [id number]; jg9 Disposition: 18:29 Co-signature as Attending Physician, Houston Arevalo MD. rn Disposition Summary: 11/02/21 17:41 Discharge Ordered Location: Home cp Problem: new cp Symptoms: have improved cp Condition: Stable cp Diagnosis - Threatened cp Followup: cp - With: Private Physician - When: 1 week - Reason: Recheck today's complaints Discharge Instructions: - Discharge Summary Sheet cp - Abdominal Pain During cp - Care cp - Threatened Miscarriage cp - Vaginal Bleeding During , First Trimester cp - Activity Restriction During cp Forms: - Medication Reconciliation Form cp - Thank You Letter cp - Antibiotic Education cp - Prescription Opioid Use cp Prescriptions: - 147-iron gluc-folic 13 mg iron- 1 mg Oral tablet - take 1 tablet by ORAL route once daily; 60 tablet; Refills: 0, Product cp Selection Permitted - Macrobid 100 mg Oral Capsule - take 1 capsule by ORAL route every 12 hours for 7 days; 14 capsule; Refills: 0, cp Product Selection Permitted Signatures: Dispatcher [employer] Houston Haas MD MD rn Page, Corey, PA PA cp Rowena Vega RN RN ld1 Jaylene Lombardi RN RN jg9
[2021-11-02 21:11] VITALS: TEMP 98.3
[2021-11-02 21:12] VITALS: BP 116/66; O2SAT 100
== END 2021-11-02 18:00 | disposition home or self-care (01) ==
LOC: ER 14:28
DX: O20.0 Threatened abortion (principal); Z3A.08 8 weeks gestation of pregnancy
CPT/HCPCS: 36415; 76817; 80048; 81003; 81015; 81025; 84702; 85025; 86900; 86901; 87086; 87088; 99284